=== PATIENT | male | born 1960 | race Two or more races ===

== ENCOUNTER 2023-09-16 17:38 | Emergency (ER) | payer OTHER ==
[~2023-09-16] VITALS: Ht 170.2 cm; Wt 122.0 kg
[2023-09-16] MEDS ORDERED: ELIQUIS5 MG PO (17:46)
[2023-09-16] MEDS ORDERED: CLONAZEPAM1 M1 PO (17:47)
[2023-09-16] MEDS ORDERED: ACETAMINOPHEN 500 MG GEL..CAP PO ONE ×2 (19:22→19:30)
== END 2023-09-16 22:23 | disposition home or self-care (01) ==
LOC: ER 17:39
DX: S09.8XXA Other specified injuries of head, initial encounter (principal); S49.92XA Unspecified injury of left shoulder and upper arm, initial encounter; W06.XXXA Fall from bed, initial encounter; Y93.89 Activity, other specified; Y92.89 Other specified places as the place of occurrence of the external cause; Y99.8 Other external cause status

== ENCOUNTER 2023-09-24 18:50 | Emergency (ER) | payer OTHER ==
[~2023-09-24] VITALS: Ht 177.8 cm; Wt 117.9 kg
[~2023-09-24 18:50] MED LIST: CLONAZEPAM1 M1 PO; ELIQUIS5 MG PO
[2023-09-24 20:11] LABS: HEMATOCRIT 47.3 % (39.0-48.0); HEMOGLOBIN 16.1 g/dL (13-16.00); MEAN CELL VOLUME 93.8 fL (80.0-100.00); MEAN CORPUSCULAR HEMOGLOBIN 31.9 pg (27.00-32.0); MEAN CORPUSCULAR HGB CONC 34.1 g/dl (32.0-36.0); PLATELET COUNT 203 K/uL (150-450); RED BLOOD COUNT 5.04 M/uL (4.00-6.00); RED CELL DISTRIBUTION WIDTH 14.6 % (11.5-14.5)
[2023-09-24 20:36] LABS: CALCIUM 9.3 mg/dL (8.5-10.1); CREATININE SERUM 0.78 mg/dL (0.70-1.30); GFR 99.89; POTASSIUM 4.08 mEq/L (3.5-5.1)
[2023-09-24] MEDS ORDERED: CEFTRIAXONE SODIUM 1,000 MG VIAL IM STA (22:39)
[2023-09-24] MEDS ORDERED: CEFTRIAXONE SODIUM 1,000 MG VIAL ONE (22:40)
== END 2023-09-24 22:53 | disposition home or self-care (01) ==
LOC: ER 18:51
PROVIDERS: General Practice
DX: S93.112A Dislocation of interphalangeal joint of left great toe, initial encounter (principal); X58.XXXA Exposure to other specified factors, initial encounter; Y93.89 Activity, other specified; Y92.89 Other specified places as the place of occurrence of the external cause; Y99.9 Unspecified external cause status
CPT/HCPCS: 28660; 36415; 73630; 73660; 96372; 99284; J0696